=== PATIENT | female | born 1990 | race Caucasian/White ===

== ENCOUNTER 2017-08-19 07:03 | Day surgery (SDC) | payer MEDICAID ==
[2017-08-19] MEDS ORDERED: Cyanocobalamin (Vitamin B12) 1,000 MCG/ML SDV IM ONE (07:30)
[2017-08-19] MEDS: Lactated Ringers 1,000 ML IV SCH ×2 (07:55→11:16)
[2017-08-19] MEDS: Glycopyrrolate 0.2 MG/ML 2 ML SDV IVPUSH ONE ×2 (08:15→09:33)
[2017-08-19] MEDS ORDERED: Ondansetron 4 MG/2 ML SDV IVPUSH PRN (08:15)
[2017-08-19] MEDS ORDERED: MVI, Adult with Vitamin K 10 ML, Thiamine 200 MG, Chromium/Copper/Mang/Selen/Zn 1 ML in... IV ONE ×4 (08:30)
[2017-08-19] MEDS ORDERED: Midazolam 1 MG/ML 2 ML SDV ONE (09:45)
[2017-08-19] MEDS ORDERED: fentaNYL 100 MCG/2 ML SDV ONE (09:45)
[2017-08-19] MEDS ORDERED: Propofol 200 MG/20 ML SDV ONE (09:45)
[2017-08-19] MEDS ORDERED: HYDROmorphone 1 MG/ML Syringe IVPUSH ONE (11:05)
[2017-08-19 11:56] VITALS: BP 121/84
--- NOTE | 2017-08-21 14:17 | OR ---
DATE OF PROCEDURE: 08/19/2017 PREOPERATIVE DIAGNOSIS: Upper abdominal pain. POSTOPERATIVE DIAGNOSIS: Upper abdominal pain associated with very mild redness and inflammation of the gastric pouch. OPERATIVE PROCEDURE: Upper GI endoscopy with biopsies of gastric pouch for CLOtest. ANESTHESIA: IV sedation. INDICATION FOR PROCEDURE: This is a 27-year-old who underwent a gastric bypass in 2009. She was complaining of increasing abdominal pain and was seen in the emergency room in [place] on 08/10/2017. A CT scan at that time was obtained, it was normal, and she was prescribed Protonix, liquid Carafate, and Zantac. She filled and has started the Protonix and liquid Carafate, but not the Zantac. She does think that the epigastric discomfort is improving somewhat on that pain regimen. The plan is to proceed with upper GI endoscopy with biopsies and/or dilation as indicated. Potential risks including bleeding and perforation were discussed, and the patient wishes to proceed. DETAILS OF PROCEDURE: The patient was taken to the operating room and placed in a left lateral decubitus position. IV sedation was administered after which the upper GI endoscope was passed orally through the length of the esophagus and into the gastric pouch, from there through the gastrojejunostomy roughly 20 cm into the Juan limb. The exam was almost entirely normal. There was some very mild redness and mild inflammation in the gastric pouch, but otherwise the findings were quite minimal. Biopsies were obtained from the pouch and sent for CLOtest for H. pylori and the procedure was then concluded. The patient was taken to the recovery room in satisfactory condition. The plan will be to have the patient continue the regimen consisting of the Protonix and Carafate. In addition, we can add some Gaviscon [id number] p.r.n. She will be instructed if the pain worsens that she should contact us as there is still some possibility that we are dealing with a partial SBO related to adhesions and such, but there clearly does not appear to be a volvulus on the CT scan and we will have her set up to see Jes Mack back either in [place] or in [place] in 1 month, contact us sooner if the pain does not seem to improve over the next week or so. Bobby Lockhart MD /[id number]
== END 2017-08-19 12:52 | disposition home or self-care (01) ==
LOC: JP.SDS 07:03
PROVIDERS: ATTEND Surgery
DX: K29.70 Gastritis, unspecified, without bleeding (principal); E03.9 Hypothyroidism, unspecified; E55.9 Vitamin D deficiency, unspecified; F32.9 Major depressive disorder, single episode, unspecified; E53.8 Deficiency of other specified B group vitamins; F98.8 Other specified behavioral and emotional disorders with onset usually occurring in childhood and adolescence; Z88.0 Allergy status to penicillin; Z88.1 Allergy status to other antibiotic agents; Z88.8 Allergy status to other drugs, medicaments and biological substances; Z91.040 Latex allergy status; Z90.49 Acquired absence of other specified parts of digestive tract; Z98.84 Bariatric surgery status; Z98.51 Tubal ligation status; Z90.722 Acquired absence of ovaries, bilateral
CPT/HCPCS: 43239; 87081; J1170; J2250; J2405; J2704; J3010; J3411; J3420; J7120; J3490